=== PATIENT | male | born 1980 | race Caucasian/White ===

== ENCOUNTER 2016-10-04 02:18 | Emergency (ER) | payer SELFPAY ==
[~2016-10-04] VITALS: Ht 180.3 cm; Wt 91.4 kg
[~2016-10-04 02:18] MED LIST: ALPR2TAB2 PO; ESCI10TA10 PO; MIRT15TA3 PO; ZIPR40CA2 PO
[2016-10-04 02:20] VITALS: BP 122/84
== END 2016-10-04 04:15 | disposition left against medical advice (07) ==
LOC: ED 04:09
DX: R45.851 Suicidal ideations (principal); Z53.21 Procedure and treatment not carried out due to patient leaving prior to being seen by health care provider